=== PATIENT | female | born 1980 | race Caucasian/White ===

== ENCOUNTER 2022-07-25 11:37 | Outpatient (CLI) | payer OTHER, SELFPAY ==
--- NOTE | ~2022-07-25 | MM_ITS ---
EXAMINATION: MM screening tio BI w tony HISTORY: Screening mammogram TECHNIQUE: Craniocaudal and mediolateral oblique 3-D tomosynthesis images were obtained and synthetic 2-D images were generated. CAD analysis was submitted and interpreted. COMPARISON: No prior mammogram is available for comparison at this institution. BREAST PARENCHYMAL COMPOSITION:The breasts are heterogeneously dense, which may obscure small masses. FINDINGS: No suspicious mass, calcification, or architectural distortion are identified in either ruchi ast to suggest malignancy. IMPRESSION: No mammographic evidence of malignancy. Recommend routine screening mammography in one year. BI-RADS Category 1: Negative Reviewed, dictated and finalized at location .
== END 2022-07-25 11:38 | disposition home or self-care (01) ==
LOC: CHSIMG 11:40
PROVIDERS: PCP Family Medicine; Visit Provider Nurse Practitioner
DX: Z12.31 Encounter for screening mammogram for malignant neoplasm of breast (principal)
CPT/HCPCS: 77063; 77067

== ENCOUNTER 2022-08-02 13:34 | Outpatient (CLI) | payer OTHER, SELFPAY ==
--- NOTE | ~2022-08-02 | US_ITS ---
EXAMINATION: US breast LT limited HISTORY: Double lump in the upper outer quadrant of the left breast. TECHNIQUE: Limited left breast ultrasound is performed. FINDINGS: There is a 2.5 x 1.4 cm oval, circumscribed, parallel, hypoechoic mass with posterior acous tic enhancement and internal vascularity at the 2:00 location, 6 cm from the nipple corresponding to the palpable abnormality of concern. A 0.8 cm adjacent mass with similar sonographic features is also noted. There are cysts measuring up to 1.1 cm at the 2:00 location. IMPRESSION: Indeterminate left breast mass corresponding to the palpable abnormality of concern. Ultrasound-guide d biopsy is recommended. BI-RADS category 4, suspicious findings. Reviewed, dictated and finalized at location A. IMPRESSION: Indeterminate left breast mass corresponding to the palpable abnormality of con cern. Ultrasound-guided biopsy is recommended. BI-RADS category 4, suspicious findings.
== END 2022-08-02 13:35 | disposition home or self-care (01) ==
LOC: CHSIMG 13:35
PROVIDERS: PCP Family Medicine; Visit Provider Nurse Practitioner
DX: N63.21 Unspecified lump in the left breast, upper outer quadrant (principal); R92.8 Other abnormal and inconclusive findings on diagnostic imaging of breast
CPT/HCPCS: 76642

== ENCOUNTER 2023-08-21 13:47 | Outpatient (CLI) | payer OTHER, SELFPAY ==
--- NOTE | ~2023-08-21 | MM_ITS ---
EXAMINATION: MM screening [facility] BI w tony HISTORY: Screening TECHNIQUE: Craniocaudal and mediolateral oblique 3-D tomosynthesis images were obtained and synthetic 2-D images were generated. CAD analysis was submitted and interpreted. COMPARISON: 07/25/2022 BREAST PARENCHYMAL COMPOSITION: Dense: The breasts are heterogeneously dense, which may obscure small masses FINDINGS: There are developing nodular asymmetries in the upper inner quadrant of the right breast po steriorly. There is a developing mass in the upper outer quadrant of the left breast. IMPRESSION: 1. Developing right breast asymmetries and left breast mass. 2. Additional mammographic views and possible breast ultrasound are recommended. BI-RADS Category 0: Incomplete: Needs additional imaging evaluation. Reviewed, dictated and finalized at location B. IMPRESSION: 1. Developing right breast asymmetries and left breast mass. 2. Additional mammographic views and possible breast ultrasound are recommended . BI-RADS Category 0: Incomplete: Needs additional imaging evaluation.
== END 2023-08-21 13:48 | disposition home or self-care (01) ==
PROVIDERS: PCP Family Medicine; Visit Provider Nurse Practitioner
DX: Z12.31 Encounter for screening mammogram for malignant neoplasm of breast (principal); R92.8 Other abnormal and inconclusive findings on diagnostic imaging of breast
CPT/HCPCS: 77063; 77067

== ENCOUNTER 2023-09-02 08:47 | Outpatient (CLI) | payer OTHER, SELFPAY ==
--- NOTE | ~2023-09-02 | MMUS_ITS ---
EXAMINATION: MM diagnostic tio BI w tony, US breast LT limited HISTORY: Upper outer left breast mass, possible developing right breast mass TECHNIQUE: Additional 3-D tomosynthesis images of the bilateral breasts were performed and synthetic 2-D images were generated. CAD analysis was submitted and interpreted. High resolution limited left b reast ultrasound was performed. COMPARISON: 08/21/2023, 07/25/2022, 08/02/2022 FINDINGS: MAMMOGRAPHIC FINDINGS: Breast parenchyma is heterogeneously dense. Spot compression views confirm a 3.6 cm low-density mass of the upper, outer left breast, with overlying biopsy clip. The area of increased density in the inn er right breast effaces spot compression. No right breast mass or distortion are evident. ULTRASOUND: At the upper, outer left breast, 5 cm from the nipple, there is a 3.1 x 2.8 x 2.3 cm solid, mildly he terogeneous, relatively circumscribed mass, essentially stable from prior exam, compatible with biops y-proven fibroadenoma. There are several benign-appearing cystic structures adjacent to the mass, wit h largest individual cyst measuring 0.8 cm in diameter. 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 Several benign cysts adjacent to the fibroadenoma, new from prior exam. No evidence for malignancy in either breast. BI-RADS Category 2: Benign finding(s). Reviewed, dictated and finalized at [facility]. 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 Several benign cysts adjacent to the fibroadenoma, new from prior exam. No evidence for malignancy in either breast. BI-RADS Category 2: Benign finding(s).
== END 2023-09-02 08:48 | disposition home or self-care (01) ==
LOC: CHSIMG 08:50
PROVIDERS: PCP Nurse Practitioner; Visit Provider Nurse Practitioner
DX: R92.8 Other abnormal and inconclusive findings on diagnostic imaging of breast (principal)
CPT/HCPCS: 76642; 77062; 77066; G0279

== ENCOUNTER 2024-09-18 08:17 | Outpatient (CLI) | payer BC, SELFPAY ==
--- NOTE | ~2024-09-18 | MM_ITS ---
EXAMINATION: MM screening tio BI w tony HISTORY: Screening mammogram TECHNIQUE: Craniocaudal and mediolateral oblique 3-D tomosynthesis images were obtained and synthetic 2-D images were generated. CAD analysis was submitted and interpreted. COMPARISON: 08/21/2023, 07/25/2022 BREAST PARENCHYMAL COMPOSITION:Dense: The breasts are extremely dense, which lowers the sensitivity o f mammography. FINDINGS: Upper, outer left breast mass appears to be significantly increased in size, now measuring at least 4.1 cm in diameter. No suspicious abnormality in the right breast. No suspicious microcalcif ications. IMPRESSION: Upper, outer left breast mass is significantly increased in size from prior exam, however the lesion has been previously biopsied. Correlate with prior biopsy results. Ultrasound advised given the inter lesley increase in size. BI-RADS Category 0: Incomplete: Needs additional imaging evaluation. Reviewed, dictated and finalized at location . IMPRESSION: Upper, outer left breast mass is significantly increased in size from prior exa m, however the lesion has been previously biopsied. Correlate with prior biopsy results. Ultrasound advised given the interval increase in size. BI-RADS Category 0: Incomplete: Needs additional imaging evaluation.
--- OUTSIDE RECORDS SUMMARY | 2024-09-18 08:22 | XMS_ITS | Clinical Summary ---
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 Name Role Phone Unavailable Primary Care Provider Unavailabl e Social History Tobacco Use Types Packs/Day Years Used Date Smoking Tobacco: Never Assessed Comments Unknown Sex and Gender Information Value Date Recorded Sex Assigned at Not on file Legal Sex Female 5:43 PM [employer] Gender Identity Not on file Sexual Orientation Not on file Plan of Treatment Health Maintenance Due Date Last Done Comments Cervical Cancer Screening Pa p Smear (Age 30 to 64) Every 3 Years 1979 Annual Physical 10/11/1982 Hepatitis C 10/11/1997 DTaP, Tdap and Td Vaccines ( 1 - Tdap) 10/11/1998 Hepatitis B Vaccines (1 of 3 - 19+ 3-dose series) 10/11/1998 Cervical Cancer Screening Pa p with HPV Testing (Age 30 to 64) Every 5 Years 10/11/2009 Cervical Cancer Screening with HPV 10/11/2009 Mammogram Screening 2019 COVID-19 Vaccine (2023-2 5 season) 2023 HPV Vaccines Aged Out No longer eligi ble based on patient's age to complete this topic Meningococcal B Vaccine Aged Out No l onger eligible based on patient's age to complete this topic Meningococcal Vaccine Aged Out No vijay endy eligible based on patient's age to complete this topic Pneumococcal Vaccine: Pediat rics (0 to 5 Years) and At-Risk Patients (6 to 49 Years) Aged Out No longer eligible b ased on patient's age to complete this topic RSV Immunizations Under 20 Months Aged Out No longer eligible based on patient's age to complete this topic
== END 2024-09-18 08:18 | disposition home or self-care (01) ==
LOC: CHSIMG 08:19
PROVIDERS: PCP Nurse Practitioner; Visit Provider Nurse Practitioner
DX: Z12.31 Encounter for screening mammogram for malignant neoplasm of breast (principal); R92.8 Other abnormal and inconclusive findings on diagnostic imaging of breast
CPT/HCPCS: 77063; 77067

== ENCOUNTER 2024-09-22 08:51 | Outpatient (CLI) | payer BC, SELFPAY ==
--- NOTE | ~2024-09-22 | US_ITS ---
US breast LT limited 09/22/2024 09:10 Indication: Follow-up left breast mass. Previously biopsy-proven fibroadenoma left breast. Procedure: High-resolution Limited ultrasound of the left breast Comparison: Comparison to multiple prior studies sequentially, with oldest reviewed study dated 08/02. Findings: There is an oval circumscribed parallel oriented hypoechoic mass of the left breast at 2-3: 00, 5 cm from the nipple measuring 4.1 x 3.4 x 2.7 cm compared with 2.5 x 2 x 1.5 cm on 08/02/2022. Th ere is internal vascularity with mixed posterior attenuation. There are adjacent cysts, largest measu ring 1 cm. Impression: 1: Enlarging left breast mass at 2-3:00, 5 cm from the nipple measuring 4.1 cm maximum dimension, con sistent with previously biopsy-proven fibroadenoma. BI-RADS CATEGORY 2 - BENIGN FINDINGS Reviewed, dictated and finalized at location [] Impression: 1: Enlarging left breast mass at 2-3:00, 5 cm from the nipple measuring 4.1 cm maximum dimension, consistent with previously biopsy-proven fibroadenoma. BI-RADS CATEGORY 2 - BENIGN FINDINGS
--- OUTSIDE RECORDS SUMMARY | 2024-09-22 09:06 | XMS_ITS | Clinical Summary ---
Author Organization 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
== END 2024-09-22 08:52 | disposition home or self-care (01) ==
LOC: CHSIMG 08:53
PROVIDERS: PCP Nurse Practitioner; Visit Provider Nurse Practitioner
DX: D24.2 Benign neoplasm of left breast (principal)
CPT/HCPCS: 76642

== ENCOUNTER 2024-11-11 01:54 | Day surgery (SDC) | payer BC, SELFPAY ==
[2024-11-03 12:35] VITALS: BMI 25.0
--- NOTE | 2024-11-03 12:42 | PC.NURSE ---
Report to the Outpatient Waiting Room, entrance under the green pavilion located off [facility], at time _0600_ on date _[id number]_. Planned Procedure Time: _0730_.? Time changes happen often and if your time is changed the preop area will call you the afternoon before. - You and your visitor will be asked to self-screen and do not enter if you have any COVID symptoms. Please call surgeon if you need to reschedule. - A mask is optional within the hospital at this time. Patients may have clear liquids (water, carbonated beverages, clear teas, apple juice) until 3 hours prior to surgery with a maximum of 20 ounces. - No food from midnight until time of surgery and no smoking, or chewing tobacco (or any form of nicotine). No chewing gum, candy or mints. Take only the following medications with a SIP of water on the morning of surgery: ___Propanolol____ DO NOT STOP ANY OF YOUR OTHER PRESCRIPTION MEDICATIONS PRIOR TO SURGERY EXCEPT THE FOLLOWING Hold all vitamins and supplements for 3 days per anesthesiologist. Medications to discontinue per physician Date to take last fcck___[id number]____ Please no make-up, nail citizen of [place], hairspray, perfume, deodorant, or body powder the day of surgery.? No jewelry (including any body piercings) or valuables the day of surgery, leave them at home.? Please take a shower or bath the night before, or the morning of, surgery with an antibacterial soap.? Wear comfortable, loose fitting clothing.? - Jewelry must be removed prior to entering the operating room.? Rings and piercings that are not removed may be cut off. - The hospital will not accept responsibility for valuables.? - Please leave all valuables, including medications, at home the day of surgery. If you are going home after surgery, a licensed motor vehicle escort driver must drive you home.? - NO public transportation without another adult if you receive anesthesia. - We recommend that an adult stay with you for 24 hours following discharge. - We also recommend that you do not drive, make important decision, drink alcoholic beverages, or take any drugs that were not prescribed by your health care provider for at least 24 hours after your discharge time. Follow any additional instructions given to you from your surgeon. Telephone instructions given to __Randi___and asked if any additional questions and then verbalized understanding. Patient advised to call surgeon office or pre surgery nurse liaison [phone] if any additional questions.
[2024-11-11] VITALS (10 sets, daily range): BP systolic 87–120; BP diastolic 47–86; PULSE 67–87; RESP 12–18; TEMP 36.2–36.9; O2SAT 99–100; BMI 24.7
--- NOTE | ~2024-11-11 | MM_ITS ---
Clinical history:Surgical specimen EXAM:X-ray breast specimen TECHNIQUE:A single image of a breast specimen was obtained FINDINGS: Microclip is noted in the breast specimen. IMPRESSION: Microclip is noted in the breast specimen. Reviewed, dictated and finalized at location Q.
[2024-11-11] MEDS: LACTATED RINGERS 1,000 ML 30 ML IV CONT ×2 (06:20→08:38)
[2024-11-11] MEDS: ACETAMINOPHEN 500 MG TABLET 1000 MG PO (06:25)
[2024-11-11 06:50] LABS: BEDSIDEPREGUCG Negative (Negative)
[2024-11-11] MEDS: SCOPOLAMINE 1 MG PATCH 1 PATCH TRANSDERM (06:50)
--- NOTE | 2024-11-11 06:51 | P.PNAN_ITS ---
Anes - Initial Pre Proc Eval Procedure: Operation Date: 11/11/24 07:30 Proposed Procedures p Excisional Biopsy Left Breast Mass, Possible Adjacent Tissue Transfer - Bryanna Bajwa MD Date/Time: 11/11/24 06:51 Surgeon: Bryanna Bajwa MD Pre Op Diagnosis: Fibroadenoma Left Breast Patient Data Age: 44 Gender: F Height: 1.68 m Weight: 69.7 kg Last Vital Signs Temp 36.9 C 11/11/24 06:00 Pulse 68 11/11/24 06:00 Resp 14 11/11/24 06:00 BP 120/86 11/11/24 06:00 Pulse Ox 100 11/11/24 06:00 O2 Del Method Room Air 11/11/24 06:00 Allergies Allergy/AdvReac Type Severity Reaction Status Date / Time No Known Allergies Allergy Verified 11/11/24 06:36 Home Medications ?Medication ?Instructions ?Recorded ?Confirmed ?Type ubrogepant 100 mg tablet (Ubrelvy) 100 mg PO ONCE PRN migraine 10/05/24 11/03/24 History headache L.acidophilus,rhamnosus-B.breve-S.thermophilus 1 table t PO DAILY 11/03/24 11/11/24 History 3 billion cell chew tab propranolol 60 mg capsule,24 60 mg PO DAILY 11/03/24 0 11/11/24 History hr,extended release Laboratory Tests 11/11/24 06:00 POC Urine HCG, Qual Negative (Negative) Patient hx anesthesia problems: post op nausea/vomiting Family hx anesthesia problems: none Results Review: All pre-operative results and documents have been reviewed as part of the pre- operative evaluation. [facility] Past Medical History Medical History (Updated 11/10/24 @ 13:29 by Brayan Power DO) PONV (postoperative nausea and vomiting) Anxiety Social History Social History (Updated 11/02/24 @ 15:22 by Eve Carlos CMA) Smoking status: Former smoker Alcohol intake: current Substance use: never Substance use type: does not use Current Housing: Decline to Answer Concerned About Future Housing: Decline to Answer Difficulty Paying Gas/Electric Bills: Decline to Answer Difficulty Paying for Meds: Decline to Answer Education: Decline to Answer Difficulty w/ Childcare or Family Care: Decline to Answer Anes - Eval Final PreProcedure Day of Procedure 11/11/24 06:51 Patient weight: normal Heart: regular rate and rhythm Lungs: clear to auscultation Airway: Mallampati scale class 1 Neurological: alert and oriented Last oral intake: >/= 8 hours ASA classification: II Emergent: no Anesthetic plan: proceed Anesthesia type and monitoring: general LMA and standard monitoring Results Review: All pre-operative results and documents have been reviewed as part of the pre- operative evaluation. Informed Consent: The patient's anesthetic plan and its attendant risks and benefits were discussed with the patient/family/POA. Questions were solicited and answers provided to the satisfaction of the patient/family/POA.
--- NOTE | 2024-11-11 07:03 | WPDHPUPDATE1 ---
History and Physical Update Update Date/Time: 11/11/24 07:03 - Excisional biopsy of left breast mass and possible adjacent tissue transfer. History and Physical has been reviewed, including an updated exam of the patient. There are NO changes in the patient's condition. Risks, benefits, and alternatives have been discussed and questions answered. Patient agrees to proceed with procedure.
[2024-11-11] MEDS: ceFAZolin 2 GM in SODIUM CHLORIDE 0.9% IV 50 ML 100 ML IVPB (07:26)
[2024-11-11] MEDS: LIDOCAINE 1% LOCAL INJ 10 ML VIAL INFILTRATE (07:49)
--- NOTE | 2024-11-11 08:14 | S_PTH ---
PATIENT: Blanquita Steven LOC: [facility] U#:[id number] AGE/SX: 44/F ROOM: RE11/11/[address]: Bryanna Bajwa MD : 1980 BED: DIS: 11/11/2024 SPEC #: [id number] RECD: 11/11/24 10:09 STATUS: VALERI REKasi #: [id number] DORYS: 11/11/24 08:[address]: Bryanna Bajwa DEPT: [facility] Surgical RECD BY: Guille Hu ENTERED: 11/11/24 10:09 SP TYPE: Surgical OTHR DR: Dee Roque, PULVERIZER Tissues: A - Breast Lumpectomy Procedures: Hematoxylin and Eosin Stain Gross and Microscopic Level 5
--- NOTE | 2024-11-11 09:38 | SUR.PHASEI ---
RN asked Dr. Power if patient could take her migraine medication in outpatient. He said it was okay for patient to take.
--- NOTE | 2024-11-12 07:55 | P.OP_ITS ---
Procedure Note - Detailed Date of Procedure 11/12/24 Pre-op Diagnosis Fibroadenoma Left Breast Post-op Diagnosis Same Procedure Performed Excision of enlarging and symptomatic biopsy-proven left breast fibroadenoma Surgeon Bryanna Bajwa MD Anesthesia MAC Description of Procedure the patient was identified in the preoperative holding area brought to the operating room suite. She was laid supine in the OR table sequential compression devices were applied. Anesthesia was induced without difficulty. The left chest area was prepped and draped in a sterile fashion. The large palpable mass was noted lateral to the breast and decision was made to access this via a lateral inframammary fold incision. Dissection was carried down through the subcutaneous tissue into the breast and the mass was completely excised EN bloc using Bovie electrocautery. The mass was then sent to pathology as a permanent specimen. The cavity was irrigated with saline and hemostasis was assured. The cavity was then approximated with intraparenchymal 2 0 Vicryl interrupted suture to decrease the risk of seroma formation. The deep dermal layer was then closed with interrupted 3-0 Vicryl and the skin was then closed with 4-0 Monocryl in a subcuticular fashion followed by Dermabond and Steri- Strips. A surgical bra was placed and patient was awoken from anesthesia and taken to the recovery area in stable condition. All needles, instruments, and sponge counts were correct as reported by the operating room staff. Patient tolerated the procedure well with no immediate complications. Estimated Blood Loss 10 Drains No Pathology Yes Complications No immediate complications Condition Stable Disposition PACU [facility] Billing Surgery - Charge Forward: Surgery Billing (CPT 61978)
== END 2024-11-11 10:24 | disposition home or self-care (01) ==
PROVIDERS: PCP Nurse Practitioner; Visit Provider Surgery
PROC: (CPT 19120; principal; 2024-11-11 07:30)
DX: D24.2 Benign neoplasm of left breast (principal)
CPT/HCPCS: 19120; 76098; 88307; J0690; A9270; J1100; J1200; J2003; J2250; J2405; J2704; J3010; J7120; L8000; Q9968